=== PATIENT | female | born 1930 | race Caucasian/White ===

== ENCOUNTER 2019-04-02 08:47 | Inpatient (IN) | payer MEDICARE ==
[~2019-04-02] VITALS: Ht 154.9 cm; Wt 59.0 kg
--- NOTE | 2019-04-02 09:10 | NUR ---
ED Nurse Note: Patient was brought in to ER by daughter from [facility] due to rectal bleed and hemoglobin from 12 to 9 within 2 days at dialysis center. pt has been on dialysis for 3 month every , , Sun. last dialysis was yesterday and that's when her doctor found out her hemoglobin went down to 9. patient is hard of hearing, daughter at bedside, alert and oriented x4. pt can ambulate with FWW and 1 person assistance. pt has dialysis catheter on Rt upper chest and scheduled for Lt arm shunt insertion so no iv should be made on Lt arm. skin thin, pale, but intact.
[2019-04-02 09:36] VITALS: BP 138/54
[2019-04-02 09:51] LABS: BASOPHILS % (AUTO) 0.7 % (0.0-2.0); EOSINOPHILS % (AUTO) 1.6 % (0.0-3.0); HEMATOCRIT 32.6 % (37.0-47.0); HEMOGLOBIN 10.4 G/DL (12.0-16.0); LYMPHOCYTES % (AUTO) 21.5 % (20.0-45.0); MEAN CORPUSCULAR VOLUME 92 FL (80-99); MONOCYTES % (AUTO) 12.1 % (1.0-10.0); NEUTROPHILS % (AUTO) 64.2 % (45.0-75.0); PLATELET COUNT 151 K/UL (150-450); RED BLOOD COUNT 3.54 M/UL (4.20-5.40); RED CELL DISTRIBUTION WIDTH 16.5 % (11.6-14.8); WHITE BLOOD COUNT 5.5 K/UL (4.8-10.8)
[2019-04-02 09:56] LABS: INR 1.1 (0.9-1.1)
[2019-04-02 09:58] LABS: ANION GAP 10 mmol/L (5-15); BLOOD UREA NITROGEN 49 mg/dL (7-18); CALCIUM 7.5 MG/DL (8.5-10.1); CARBON DIOXIDE 27 MMOL/L (21-32); CHLORIDE 97 MMOL/L (98-107); CREATININE 3.6 MG/DL (0.55-1.30); POTASSIUM 5.2 MMOL/L (3.5-5.1); SODIUM 134 MMOL/L (136-145)
--- NOTE | 2019-04-02 09:59 | Emergency Room Report ---
History of Present Illness General Chief Complaint: Gastrointestinal Bleed Source: Patient, Family Member, Medical Record Present Illness HPI 88-year-old female presents ED for evaluation. Patient brought in with family stating that she's been having rectal bleeding for the last week. History of external hemorrhoids. States that she had labs drawn yesterday which showed drop in hemoglobin since last week. History of end-stage renal disease on dialysis Sunday. Denies any blood thinners. Denies any abdominal pain. Denies dizziness or weakness. No other aggravating relieving factors Allergies: Coded Allergies: AMLODIPINE (Verified Allergy, Unknown, 04/02/19) AMOXICILLIN (Verified Allergy, Unknown, 04/02/19) ERYTHROMYCIN BASE (Verified Allergy, Unknown, 04/02/19) GENTAMICIN (Verified Allergy, Unknown, 04/02/19) LATEX (Verified Allergy, Unknown, 04/02/19) PENICILLINS (Verified Allergy, Unknown, 04/02/19) PINEAPPLE (Verified Allergy, Unknown, 04/02/19) SULFA (SULFONAMIDE ANTIBIOTICS) (Verified Allergy, Unknown, 04/02/19) Patient History Past Medical History: HTN, renal disease, dialysis Past Surgical History: none Pertinent Family History: none Social History: Denies: smoking, alcohol use, drug use Last Menstrual Period: na Now: No Immunizations: UTD Reviewed Nursing Documentation: PMH: Agreed; PSxH: Agreed Nursing Documentation-PMH Past Medical History: No History, Except For Hx Cardiac Problems: Yes Hx Hypertension: Yes Hx Dialysis: Yes History Of Psychiatric Problem: Yes Review of Systems All Other Systems: negative except mentioned in HPI Physical Exam Vital Signs Date Time Temp Pulse Resp B/P (MAP) Pulse Ox O2 Delivery O2 Flow Rate FiO2 04/02/19 09:00 98.1 61 20 93 Room Air 04/02/19 09:36 138/54 Sp02 EP Interpretation: reviewed, normal General Appearance: no apparent distress, alert, GCS 15, non-toxic Head: normocephalic, atraumatic Eyes: bilateral eye normal inspection, bilateral eye PERRL ENT: hearing grossly normal, normal pharynx, no angioedema, normal voice Neck: full range of motion, supple/symm/no masses Respiratory: chest non-tender, lungs clear, normal breath sounds, speaking full sentences Cardiovascular #1: regular rate, rhythm, no edema Cardiovascular #2: 2+ carotid (R), 2+ carotid (L), 2+ radial (R), 2+ radial (L) , 2+ dorsalis pedis (R), 2+ dorsalis pedis (L) Gastrointestinal: normal bowel sounds, non tender, soft, non-distended, no guarding, no rebound Rectal: deferred Genitourinary: normal inspection, no CVA tenderness Musculoskeletal: back normal, gait/station normal, normal range of motion, non- tender Neurologic: alert, oriented x3, responsive, motor strength/tone normal, sensory intact, speech normal Psychiatric: judgement/insight normal, memory normal, mood/affect normal, no suicidal/homicidal ideation Reflexes: 3+ bicep (R), 3+ bicep (L), 3+ tricep (R), 3+ tricep (L), 3+ knee (R) , 3+ knee (L) Skin: normal color, no rash, warm/dry, well hydrated Lymphatic: no adenopathy Medical Decision Making Diagnostic Impression: Primary Impression: LGI bleed Additional Impression: ESRD needing dialysis ER Course Hospital Course 88-year-old F presents to ED with rectal bleeding Differential diagnoses include: UGIB, LGIB, hemorrhoids Clinical course Patient placed on 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 After initial history and physical I ordered labs, Labs - no leukocytosis, Hb/Hct 10.4/32.6. K 5.2, BUN/Cr elevated. According to patient and daughter there has been a drop in hemoglobin since last week. Currently not indication for transfusion. Patient is normotensive and not actively bleeding. Case discussed with Dr. Barrett and he agreed to accept the patient to his service for further care and support I feel this is a highly complex case requiring extensive working including EKG/ Rhythm strip, Xray/CT/US, Blood/urine lab work, repeat exams while in ED, and administration of strong opiates/narcotics for pain control, admission to hospital or close patient follow up. Diagnosis - LGIB, ESRD needing dialysis Patient admitted to telemetry in serious condition Labs Test 04/02/19 09:34 04/02/19 10:00 White Blood Count 5.5 K/UL (4.8-10.8) Red Blood Count 3.54 M/UL (4.20-5.40) Hemoglobin 10.4 G/DL (12.0-16.0) Hematocrit 32.6 % (37.0-47.0) Mean Corpuscular Volume 92 FL (80-99) Mean Corpuscular Hemoglobin 29.4 PG (27.0-31.0) Mean Corpuscular Hemoglobin Concent 31.9 G/DL (32.0-36.0) Red Cell Distribution Width 16.5 % (11.6-14.8) Platelet Count 151 K/UL (150-450) Mean Platelet Volume 8.4 FL (6.5-10.1) Neutrophils (%) (Auto) 64.2 % (45.0-75.0) Lymphocytes (%) (Auto) 21.5 % (20.0-45.0) Monocytes (%) (Auto) 12.1 % (1.0-10.0) Eosinophils (%) (Auto) 1.6 % (0.0-3.0) Basophils (%) (Auto) 0.7 % (0.0-2.0) Prothrombin Time 11.6 SEC (9.30-11.50) Prothromb Time International Ratio 1.1 (0.9-1.1) Activated Partial Thromboplast Time 31 SEC (23-33) Sodium Level 134 MMOL/L (136-145) Potassium Level 5.2 MMOL/L (3.5-5.1) Chloride Level 97 MMOL/L (98-107) Carbon Dioxide Level 27 MMOL/L (21-32) Anion Gap 10 mmol/L (5-15) Blood Urea Nitrogen 49 mg/dL (7-18) Creatinine 3.6 MG/DL (0.55-1.30) Estimat Glomerular Filtration Rate mL/min (>60) Glucose Level 165 MG/DL (74-106) Calcium Level 7.5 MG/DL (8.5-10.1) Total Bilirubin 0.3 MG/DL (0.2-1.0) Aspartate Amino Transf (AST/SGOT) 26 U/L (15-37) Alanine Aminotransferase (ALT/SGPT) 16 U/L (12-78) Alkaline Phosphatase 149 U/L (46-116) Total Protein 7.7 G/DL (6.4-8.2) Albumin 3.4 G/DL (3.4-5.0) Globulin 4.3 g/dL Albumin/Globulin Ratio 0.8 (1.0-2.7) Lipase 51 U/L (73-393) Urine Color Pale yellow Urine Appearance Clear Urine pH 7 (4.5-8.0) Urine Specific [place] 1.005 (1.005-1.035) Urine Protein 2+ (NEGATIVE) Urine Glucose (UA) Negative (NEGATIVE) Urine Ketones Negative (NEGATIVE) Urine Blood 2+ (NEGATIVE) Urine Nitrite Negative (NEGATIVE) Urine Bilirubin Negative (NEGATIVE) Urine Urobilinogen Normal MG/DL (0.0-1.0) Urine Leukocyte Esterase 2+ (NEGATIVE) Last Vital Signs Date Time Temp Pulse Resp B/P (MAP) Pulse Ox O2 Delivery O2 Flow Rate FiO2 04/02/19 09:36 61 20 Room Air 04/02/19 09:36 98.1 138/54 95 Status: improved Disposition: ADMITTED INPATIENT Condition: Serious Referrals: NON PHYSICIAN (PCP) Rai Lu MD April 02, 2019 09:59
[2019-04-02 10:01] LABS: ALANINE AMINOTRANSFERASE 16 U/L (12-78); ALBUMIN 3.4 G/DL (3.4-5.0); ALBUMIN/GLOBULIN RATIO 0.8 (1.0-2.7); ALKALINE PHOSPHATASE 149 U/L (46-116); ASPARTATE AMINO TRANSFERASE 26 U/L (15-37); BILIRUBIN,TOTAL 0.3 MG/DL (0.2-1.0)
[2019-04-02 10:22] LABS: APPEARANCE,URINE CLEAR; BILIRUBIN, URINE NEGATIVE (NEGATIVE); COLOR,URINE PALE YELLOW; GLUCOSE, URINE (UA) NEGATIVE (NEGATIVE); KETONES,URINE NEGATIVE (NEGATIVE); LEUKOCYTE ESTERASE ,URINE 2+ (NEGATIVE); NITRITE,URINE NEGATIVE (NEGATIVE); PH,URINE 7 (4.5-8.0); PROTEIN,URINE 2+ (NEGATIVE); UROBILINOGEN,URINE NORMAL MG/DL (0.0-1.0)
--- NOTE | 2019-04-02 10:44 | NUR ---
ED Nurse Note: Patient could not provide stool sample. she will let nurse know when she can.
[2019-04-02] MEDS ORDERED: LOSARTAN POTASS50 MG ORAL (11:09)
[2019-04-02] MEDS ORDERED: HYDROCHLOROTHIA25 MG ORAL (11:09)
[2019-04-02] MEDS ORDERED: HYDRALAZINE HCL50 MG ORAL (11:09)
[2019-04-02] MEDS ORDERED: FLOMAX0.4 MG ORAL (11:09)
[2019-04-02] MEDS ORDERED: MIRTAZAPINE15 M3 ORAL (11:09)
[2019-04-02] MEDS ORDERED: ZOLPIDEM TARTRAT5 MG ORAL (11:09)
[2019-04-02] MEDS ORDERED: GABAPENTIN300 MG ORAL (11:09)
[2019-04-02] MEDS ORDERED: ELIQUIS2.5 MG PO (11:09)
[2019-04-02] MEDS ORDERED: SENNOSIDES8.6 MG ORAL (11:09)
[2019-04-02] MEDS ORDERED: ATORVASTATIN CA20 MG ORAL (11:09)
[2019-04-02] MEDS ORDERED: AMIODARONE HCL200 MG ORAL (11:09)
[2019-04-02] MEDS ORDERED: AMIODARONE HCL400 M1 ORAL (11:09)
[2019-04-02] MEDS ORDERED: ADALAT20 MG ORAL (11:09)
[2019-04-02] MEDS ORDERED: NORCO 5-325 TA1 EACH ORAL (11:09)
[2019-04-02] MEDS ORDERED: LACTULOSE10 GM/153 PO (11:09)
[2019-04-02] MEDS ORDERED: FUROSEMIDE40 MG ORAL (11:09)
[2019-04-02] MEDS ORDERED: MIRALAX17 G2 ORAL (11:09)
[2019-04-02] MEDS ORDERED: LORATADINE5 MG/5 M3 PO (11:09)
[2019-04-02] MEDS ORDERED: DOCUSATE SODIU100 MG ORAL (11:09)
[2019-04-02] MEDS ORDERED: SYNTHROID150 MCG ORAL (11:09)
[2019-04-02] MEDS ORDERED: POTASSIUM CHLO10 ME2 PO (11:09)
[2019-04-02 11:36] VITALS: BP 144/51
--- NOTE | 2019-04-02 11:52 | NUR ---
ED Nurse Note: report given to MIKAEL Kaiser. room is not ready yet. pt will be transferred in 20 minutes per Telemetry unit's request.
[2019-04-02 12:00] VITALS: BP 119/51
--- NOTE | 2019-04-02 12:30 | NUR ---
ED Nurse Note: Pt was tranferred to Telemetry unit with 1 RN and 1 medical equipment technician in stable condition.
--- NOTE | 2019-04-02 12:35 | NUR ---
NURSE NOTES: Received report from MIKAEL Zavala. Patient transferred from ED to tele, phototypesetting equipment monitor on, Belonging list checked with RN. Family member, Daughter, at the bed side claimed she spent money for her lunch, becker left in wallet $10x1, $5X3, checked with family member and patient. Endorsed patient was schedule for insertion of AV shunt on left upper arm, AOx4, no active s/s cardiac, respiratory distress noticed, c/o scant amount of blood when patient went to bathroom. Bed in lowest position, side rails upx3, call light within reach. Will continue to monitor.
--- NOTE | 2019-04-02 12:40 | NUR ---
NURSE NOTES: VS at the time of arrival 119/51, HR 65, T 96.8, O2 sat 94% on room air, denies pain at this time. Skin assessment done, skin intact, no open wound, bilateral heels blanchable redness noticed, Cavilon applied and Optifoam applied as preventive measure.
--- NOTE | 2019-04-02 13:00 | NUR ---
NURSE NOTES: Paged Dr. Prater for admission order, awaiting for call back, Will continue to monitor.
--- NOTE | 2019-04-02 14:33 | NUR ---
NURSE NOTES: Received admission order from Dr. Prater. Per Dr. Prater continue all the home medication except blood thinner, Eliquis, no need of DVT prophylaxis at this time for active rectal bleeding, stated already called [facility] for HD tomorrow 04/03/19, consult with Dr. Mckinney. Order noted, entered, carried out. Will continue to monitor.
[2019-04-02] MEDS ORDERED: HYDROcodone/Acetamin 5/325 tab ORAL PRN (15:00)
[2019-04-02] MEDS ORDERED: Miralax 17gm pkt ORAL PRN (15:00)
[2019-04-02 16:00] VITALS: BP 108/43
[2019-04-02] MEDS ORDERED: D5 1/2NS w/KCl 20mEq 1,000 ML IV SCH (16:00)
[2019-04-02] MEDS ORDERED: Polyethylene Glycol 238gm bottle ORAL ONE (16:00)
[2019-04-02] MEDS ORDERED: Magnesium Citrate Liq Btl ORAL ONE (16:00)
[2019-04-02] MEDS: D5 1/2NS 1,000 ML IV SCH (16:24)
--- NOTE | 2019-04-02 19:26 | NUR ---
HAND-OFF: Report given to MIKAEL Malhotra.
--- NOTE | 2019-04-02 19:42 | NUR ---
NURSE NOTES: patient received. patient in no acute distress at this time. patient complains of no pain at this time. patient awake alert and oriented x4. patient ambulatory and has steady gait. IV intact and asymptomatic. Patient NPO after midnight. sign above bed. bed in lowest position and locked. call light within reach. will continue to monitor.
[2019-04-02 20:00] VITALS: BP 125/55
--- NOTE | 2019-04-02 20:00 | Consultation ---
DATE OF CONSULTATION: 04/02/2019 CONSULTING PHYSICIAN: Inocencio Mckinney M.D. REFERRING PHYSICIAN: Clark Alvarez M.D. CHIEF COMPLAINT: Rectal bleeding. HISTORY OF PRESENT ILLNESS: This is a very pleasant 88-year-old female with past medical history of hypertension and end-stage renal disease, on hemodialysis, who presented to the hospital complaining of rectal pain, constipation, and rectal bleeding. Apparently, this has been going on for a while and getting worse. According to the patient, she had blood check in an outside facility and she was told that her hemoglobin is dropping. She had a colonoscopy many years ago, more than 10 years ago. She had complained of some rectal pain. No nausea. No vomiting. No dysphagia. No odynophagia. PAST MEDICAL HISTORY: 1. Hypertension. 2. End-stage renal disease, on hemodialysis. 3. Borderline diabetes. PAST SURGICAL HISTORY: Appendectomy, tonsillectomy, AV shunt placement for dialysis. ALLERGIES: Amlodipine, amoxicillin, erythromycin, gentamicin, latex, penicillin, pineapple, sulfa. MEDICATIONS: Please see medication reconciliation list. SOCIAL HISTORY: The patient denies any tobacco, alcohol, or IV drug abuse. FAMILY HISTORY: The patient actually has family history of breast cancers. REVIEW OF SYSTEM: Ten-point review of systems was performed and pertinent positives in HPI. PHYSICAL EXAMINATION: VITAL SIGNS: Temperature is 98.1, pulse 61, respirations 20, and blood pressure is 132/64. HEENT: Normocephalic and atraumatic. Mild pale conjunctivae. NECK: Supple. No evidence of obvious lymphadenopathy. CARDIOVASCULAR: Regular rate and rhythm. Plus S1 and S2. No obvious murmur. LUNGS: Clear to auscultation bilaterally. ABDOMEN: Positive bowel sounds. Soft and nontender. No rebound. No guarding. No peritoneal sign. EXTREMITIES: No cyanosis, no clubbing, no edema. LABORATORY DATA: White count is 5, hemoglobin 10, hematocrit 32, platelet count is 151,000. BUN is 49, creatinine is 3.6, glucose is 165. ASSESSMENT: This is an 88-year-old female with rectal bleeding. Differential diagnosis would be hemorrhoidal bleed versus diverticular bleed versus other cause of bleeding including AVM and malignancy. PLAN: I discussed the colonoscopy with the patient. The patient has also had some complaint of mild dysphagia, so I plan to do an endoscopy and colonoscopy tomorrow. The patient would get prep tonight and procedure is scheduled for tomorrow. Meanwhile, we will monitor hemoglobin and hematocrit, transfuse to keep hemoglobin above 8. I want to thank, Dr. Alvarez, for this kind referral. Inocencio Mckinney M.D. DR: ROXANNE JOB#: [id number] CC: Clark Alvarez M.D.; Fax#: [phone]
[2019-04-02] MEDS: HydrALAZINE 50mg tab ORAL SCH (21:16)
[2019-04-02] MEDS: Zolpidem 5mg tab ORAL PRN (21:16)
[2019-04-03] VITALS (9 sets, daily range): BP systolic 101–132; BP diastolic 35–66
[2019-04-03] MEDS: D5 1/2NS 1,000 ML IV SCH ×2 (05:37→17:07)
[2019-04-03] MEDS: HydrALAZINE 50mg tab ORAL SCH ×3 (06:24→22:17)
[2019-04-03 07:06] LABS: BASOPHILS % (AUTO) 0.7 % (0.0-2.0); HEMATOCRIT 26.3 % (37.0-47.0); HEMOGLOBIN 8.1 G/DL (12.0-16.0); LYMPHOCYTES % (AUTO) 25.8 % (20.0-45.0); MEAN CORPUSCULAR VOLUME 97 FL (80-99); MONOCYTES % (AUTO) 14.3 % (1.0-10.0); NEUTROPHILS % (AUTO) 56.2 % (45.0-75.0); PLATELET COUNT 133 K/UL (150-450); RED BLOOD COUNT 2.71 M/UL (4.20-5.40); RED CELL DISTRIBUTION WIDTH 17.5 % (11.6-14.8); WHITE BLOOD COUNT 3.8 K/UL (4.8-10.8)
--- NOTE | 2019-04-03 07:13 | NUR ---
HAND-OFF: Report given to connie mccarthy.
[2019-04-03] MEDS ORDERED: fentaNYL 100 mcg/2 mL IV PRN (07:15)
[2019-04-03] MEDS ORDERED: DiphenhydrAMINE 50mg/ml Inj IVP PRN (07:15)
[2019-04-03] MEDS ORDERED: Atropine Inj 1mg/10ml Syr IV PRN (07:15)
[2019-04-03] MEDS ORDERED: Midazolam 2mg/2ml Inj IVP PRN (07:15)
--- NOTE | 2019-04-03 07:16 | NUR ---
NURSE NOTES: Received report from Marya/MIKAEL, Patient is asleep, No acute distress at this time. Bed in low position and locked. Call light within reach. Will continue plan of care.
--- NOTE | 2019-04-03 07:17 | Anethesia Preoperative Eval ---
Anesthesia Pre-op PMH/ROS General Date of Evaluation: April 03, 2019 Time of Evaluation: 07:15 Anesthesiologist: ramya ASA Score: ASA 4 Mallampati Score Class I : Soft palate, uvula, fauces, pillars visible Class II: Soft palate, uvula, fauces visible Class III: Soft palate, base of uvula visible Class IV: Only hard plate visible Mallampati Classification: Class II Surgeon: juan a Diagnosis: lgib Surgical Procedure: egd/colonoscopy Anesthesia History: none Social History: smoking - former Family History: no anesthesia problems Allergies: Coded Allergies: AMLODIPINE (Verified Allergy, Unknown, 04/02/19) AMOXICILLIN (Verified Allergy, Unknown, 04/02/19) ERYTHROMYCIN BASE (Verified Allergy, Unknown, 04/02/19) GENTAMICIN (Verified Allergy, Unknown, 04/02/19) LATEX (Verified Allergy, Unknown, 04/02/19) PENICILLINS (Verified Allergy, Unknown, 04/02/19) PINEAPPLE (Verified Allergy, Unknown, 04/02/19) SULFA (SULFONAMIDE ANTIBIOTICS) (Verified Allergy, Unknown, 04/02/19) Medications: see eMAR Patient NPO?: Yes Past Medical History Cardiovascular: Reports: HTN Gastrointestinal/Genitourinary: Reports: ESRD Neurologic/Psychiatric: Reports: dementia Endocrine: Reports: hypothyroidism HEENT: Reports: UNGA (L), UNGA (R) Anesthesia Pre-op Phys. Exam Physician Exam Last Vital Signs Date Time Temp Pulse Resp B/P (MAP) Pulse Ox O2 Delivery O2 Flow Rate FiO2 04/03/19 06:24 130/59 04/03/19 04:00 98.0 69 18 97 04/02/19 21:00 Room Air Constitutional: NAD Neurologic: CN 2-12 intact Cardiovascular: RRR Respiratory: CTA Gastrointestinal: S/NT/ND Airway Exam Mallampati Score: Class II MO: limited Neck: flexible TMD: 2fb ROM: limited Anesthesia Pre-op A/P Labs Hematology Test 04/02/19 09:34 04/03/19 06:15 White Blood Count 5.5 K/UL (4.8-10.8) Pending Red Blood Count 3.54 M/UL (4.20-5.40) L Pending Hemoglobin 10.4 G/DL (12.0-16.0) L Pending Hematocrit 32.6 % (37.0-47.0) L Pending Mean Corpuscular Volume 92 FL (80-99) Pending Mean Corpuscular Hemoglobin 29.4 PG (27.0-31.0) Pending Mean Corpuscular Hemoglobin Concent 31.9 G/DL (32.0-36.0) L Pending Red Cell Distribution Width 16.5 % (11.6-14.8) H Pending Platelet Count 151 K/UL (150-450) Pending Mean Platelet Volume 8.4 FL (6.5-10.1) Pending Neutrophils (%) (Auto) 64.2 % (45.0-75.0) Pending Lymphocytes (%) (Auto) 21.5 % (20.0-45.0) Pending Monocytes (%) (Auto) 12.1 % (1.0-10.0) H Pending Eosinophils (%) (Auto) 1.6 % (0.0-3.0) Pending Basophils (%) (Auto) 0.7 % (0.0-2.0) Pending Coagulation Test 04/02/19 09:34 Prothrombin Time 11.6 SEC (9.30-11.50) H Prothromb Time International Ratio 1.1 (0.9-1.1) Activated Partial Thromboplast Time 31 SEC (23-33) Chemistry Test 04/02/19 09:34 04/03/19 06:15 Sodium Level 134 MMOL/L (136-145) L Pending Potassium Level 5.2 MMOL/L (3.5-5.1) H Pending Chloride Level 97 MMOL/L (98-107) L Pending Carbon Dioxide Level 27 MMOL/L (21-32) Pending Anion Gap 10 mmol/L (5-15) Blood Urea Nitrogen 49 mg/dL (7-18) H Pending Creatinine 3.6 MG/DL (0.55-1.30) H Pending Estimat Glomerular Filtration Rate mL/min (>60) Pending Glucose Level 165 MG/DL (74-106) H Pending Calcium Level 7.5 MG/DL (8.5-10.1) L Pending Total Bilirubin 0.3 MG/DL (0.2-1.0) Aspartate Amino Transf (AST/SGOT) 26 U/L (15-37) Alanine Aminotransferase (ALT/SGPT) 16 U/L (12-78) Alkaline Phosphatase 149 U/L (46-116) H Total Protein 7.7 G/DL (6.4-8.2) Albumin 3.4 G/DL (3.4-5.0) Globulin 4.3 g/dL Albumin/Globulin Ratio 0.8 (1.0-2.7) L Lipase 51 U/L (73-393) L Risk Assessment & Plan Assessment: asa4 Plan: mac. patient's family member, Aminah Ramey, was called. message was left on voicemail. patient appeared to be alert and oriented to person, place, location, and purpose. Patient was warned of risks, included but not limited to heart attack, stroke or . questions answered. Patient indicates that she understands and accepts Status Change Before Surgery: No Pre-Antibiotics Drug: Graciela Flood MD April 03, 2019 07:17
[2019-04-03] MEDS: Losartan 50mg tab ORAL SCH (09:00)
[2019-04-03] MEDS ORDERED: Furosemide 40mg tab ORAL SCH (09:00)
[2019-04-03 09:02] LABS: ANION GAP 7 mmol/L (5-15); BLOOD UREA NITROGEN 54 mg/dL (7-18); CALCIUM 7.4 MG/DL (8.5-10.1); CARBON DIOXIDE 29 MMOL/L (21-32); CHLORIDE 103 MMOL/L (98-107); CREATININE 3.8 MG/DL (0.55-1.30); POTASSIUM 4.5 MMOL/L (3.5-5.1); SODIUM 139 MMOL/L (136-145)
[2019-04-03] MEDS: Amiodarone 200mg tab ORAL SCH (09:44)
[2019-04-03] MEDS: Docusate 100mg cap ORAL SCH (09:45)
[2019-04-03] MEDS: Tamsulosin 0.4mg cap ORAL SCH (09:45)
[2019-04-03] MEDS: Sennosides 8.6mg tab ORAL SCH (09:45)
[2019-04-03] MEDS: Lactulose 10gm/15ml UDC ORAL SCH (10:01)
[2019-04-03] MEDS ORDERED: ePHEDrine 50mg/ml Inj ONE (11:00)
[2019-04-03] MEDS ORDERED: Lidocaine 1% MPF 10mg/ml 5ml ONE (11:00)
[2019-04-03] MEDS ORDERED: Propofol 200mg/20ml IV ONE (11:00)
--- NOTE | 2019-04-03 11:39 | Pre-Procedure Note/Attestation ---
Pre-Procedure Note/Attestation Complete Prior to Procedure Planned Procedure: not applicable Procedure Narrative: esophagogastroduodenoscopy and colonoscopy Indications for Procedure Pre-Operative Diagnosis: gib Attestation I attest that I discussed the nature of the procedure; its benefits; risks and complications; and alternatives (and the risks and benefits of such alternatives ), prior to the procedure, with the patient (or the patient's legal strategic partnership representative). I attest that, if there was a reasonable possibility of needing a blood transfusion, the patient (or the patient's legal strategic partnership representative) was given the [facility] standardized written summary, pursuant to the Mian Melinda Blood Safety Act ([place] Health and Safety Code # 1645, as amended). I attest that I re-evaluated the patient just prior to the surgery and that there has been no change in the patient's H&P, except as documented below: Inocencio Mckinney MD April 03, 2019 11:39
[2019-04-03] MEDS ORDERED: NS 500ML IVPB ONE (11:40)
--- NOTE | 2019-04-03 11:41 | General Progress Note ---
Assessment/Plan Problem List: (1) LGI bleed ICD Codes: K92.2 - Gastrointestinal hemorrhage, unspecified; Z99.2 - Dependence on renal dialysis SNOMED: 46862806 (2) ESRD needing dialysis ICD Codes: N18.6 - End stage renal disease; Z99.2 - Dependence on renal dialysis SNOMED: 06744001 Assessment/Plan: plan EGD and colonoscopy for today Subjective ROS Limited/Unobtainable: Yes Allergies: Coded Allergies: AMLODIPINE (Verified Allergy, Unknown, 04/02/19) AMOXICILLIN (Verified Allergy, Unknown, 04/02/19) ERYTHROMYCIN BASE (Verified Allergy, Unknown, 04/02/19) GENTAMICIN (Verified Allergy, Unknown, 04/02/19) LATEX (Verified Allergy, Unknown, 04/02/19) PENICILLINS (Verified Allergy, Unknown, 04/02/19) PINEAPPLE (Verified Allergy, Unknown, 04/02/19) SULFA (SULFONAMIDE ANTIBIOTICS) (Verified Allergy, Unknown, 04/02/19) Objective Last 24 Hour Vital Signs Date Time Temp Pulse Resp B/P (MAP) Pulse Ox O2 Delivery O2 Flow Rate FiO2 04/03/19 09:00 58 115/42 04/03/19 09:00 115/42 04/03/19 06:24 130/59 04/03/19 04:00 98.0 69 18 130/59 (82) 97 04/03/19 04:00 55 04/03/19 00:00 97.5 61 18 132/66 (88) 98 04/03/19 00:00 55 04/02/19 21:16 108/43 04/02/19 21:00 Room Air 04/02/19 20:00 61 04/02/19 20:00 97.5 58 18 125/55 (78) 98 04/02/19 16:00 56 04/02/19 16:00 97.5 55 20 108/43 (64) 95 04/02/19 13:02 Room Air 04/02/19 12:30 98.1 57 18 144/51 98 Room Air 04/02/19 12:00 96.8 65 18 119/51 (73) 94 Intake and Output 04/02/19 04/03/19 18:59 06:59 Intake Total 240 ml 240 ml Balance 240 ml 240 ml Intake Oral 240 ml 240 ml # Voids 3 7 # Bowel Movements 14 Laboratory Tests 04/03/19 06:15: White Blood Count 3.8L, Red Blood Count 2.71L, Hemoglobin 8.1L, Hematocrit 26.3L , Mean Corpuscular Volume 97, Mean Corpuscular Hemoglobin 29.7, Mean Corpuscular Hemoglobin Concent 30.6L, Red Cell Distribution Width 17.5H, Platelet Count 133L, Mean Platelet Volume 7.8, Neutrophils (%) (Auto) 56.2, Lymphocytes (%) (Auto) 25.8, Monocytes (%) (Auto) 14.3H, Eosinophils (%) (Auto) 3.0, Basophils (%) (Auto) 0.7 04/03/19 08:40: Sodium Level 139, Potassium Level 4.5, Chloride Level 103, Carbon Dioxide Level 29, Anion Gap 7, Blood Urea Nitrogen 54H, Creatinine 3.8H, Estimat Glomerular Filtration Rate , Glucose Level 259H, Calcium Level 7.4L Height (Feet): 5 Height (Inches): 1.00 Weight (Pounds): 124 General Appearance: alert EENT: normal ENT inspection Neck: supple Cardiovascular: normal rate Respiratory/Chest: decreased breath sounds Abdomen: normal bowel sounds, non tender, soft Extremities: non-tender Inocencio Mckinney MD April 03, 2019 11:41
--- NOTE | 2019-04-03 11:55 | NUR ---
CASE MANAGEMENT:REVIEW 88 YR OLD FEMALE PRESENTED TO ER FROM [facility] CC: RECTAL BLEEDING PMH: DIALYSIS X3 MONTHS T--SUN SI: LGIB. ESRD NEEDING DIALYSIS 98.1 61 20 143/41 93% ON RA H/H-10.4/32.6 K+5.2 BUN+49 CR+3.6 IS: IVF@75/HR MAG CITRATE PO X1 MIRALAX PO X1 STOOL OB : TELEMETRY IS: COZAAR PO QD LACTULOSE PO QD AMIODARONE PO QD FLOMAX PO QD LASIX PO QD K-DUR PO QD HCTZ PO QD PROCARDIA PO QD 04/03/19 SI: H/H-8.1/26.3 IS: EGD/COLONOSCOPY : TELEMETRY PLAN: EGD/COLONOSCOPY INTERQUAL CRITERIA MET
--- NOTE | 2019-04-03 12:07 | Endoscopy Procedure Note ---
Endoscopy Procedure Note General Indication for Procedure: gib Procedures Performed: EGD, colonoscopy Operative Findings/Diagnosis: hemorrhoids,gastritis Specimen: yes Pt Tolerated Procedure Well: Yes Estimated Blood Loss: none Anesthesia Anesthesiologist: ramya Anesthesia: MAC Inserted Devices Implant(s) used?: No Quality Quality of Bowel Preparation: Fair Did scope reach the cecum?: Yes Was there any complications?: No GI Core Measures 50 yrs or older w/o bx or poly: Not Applicable 10yrs. F/U not recommended: Not Applicable Inocencio Mckinney MD April 03, 2019 12:07
--- NOTE | 2019-04-03 12:31 | Immediate Post-Op Evaluation ---
Immediate Post-Op Evalulation Immediate Post-Op Evalulation Procedure: egd/colonoscopy/bx Date of Evaluation: April 03, 2019 Time of Evaluation: 12:30 IV Fluids: 300ml 0.9ns Blood Products: none Estimated Blood Loss: negligible Blood Pressure Systolic: 101 Blood Pressure Diastolic: 35 Pulse Rate: 69 Respiratory Rate: 18 O2 Sat by Pulse Oximetry: 99 Temperature (Fahrenheit): 97.5 Pain Score (1-10): 0 Nausea: No Vomiting: No Complications none Patient Status: awake, reacts, patent Hydration Status: adequate Drug: Graciela Flood MD April 03, 2019 12:31
--- NOTE | 2019-04-03 12:32 | 48 Hour Post Anesthesia Eval ---
Post Anesthesia Evaluation Procedure: egd/colonoscopy/bx Date of Evaluation: April 03, 2019 Time of Evaluation: 12:32 Blood Pressure Systolic: 112 0: 37 Pulse Rate: 69 Respiratory Rate: 18 Temperature (Fahrenheit): 97.5 O2 Sat by Pulse Oximetry: 96 Airway: patent Nausea: No Vomiting: No Pain Intensity: 0 Hydration Status: adequate Cardiopulmonary Status: stable Mental Status/LOC: patient returned to baseline Post-Anesthesia Complications: none Follow-up care needed: N/A Graciela Gupta MD April 03, 2019 12:32
--- NOTE | 2019-04-03 15:49 | Diagnostic Imaging Report ---
Indication: Dyspnea Comparison: None A single view chest radiograph was obtained. Findings: Heart is enlarged. There is a right permacath in good position. There is some prominence of the central vessels. Bones are osteopenic. IMPRESSION: Query mild pulmonary vascular congestion. Correlate clinically
[2019-04-03] MEDS: Hydrocortisone 25mg supp RECTAL SCH (17:39)
--- NOTE | 2019-04-03 17:45 | Procedure Note ---
DATE OF PROCEDURE: 04/03/2019 SURGEON: Inocencio Mckinney M.D. PROCEDURE: Upper endoscopy with biopsy and colonoscopy with biopsy. ANESTHESIOLOGIST: Graciela Lazar M.D. INSTRUMENT: Olympus adult flexible upper endoscope and colonoscope. INDICATION: Gastrointestinal bleeding. REASON FOR PROCEDURE: The procedure, risks, benefits, and possible consequences, including hemorrhage, aspiration, perforation and infection, and alternative treatments, were explained to the patient/legal guardian by Dr. Inocencio Mckinney and the patient/legal guardian understood and accepted these risks. PROCEDURE IN DETAIL: After informed consent was obtained and the patient was adequately sedated, an Olympus upper endoscope was advanced from the mouth into the second portion of duodenum and retroflexion was performed in the stomach. The patient has diffuse gastritis. Random biopsy from antrum was obtained to rule out for H. pylori infection. At this time, the upper endoscope was retrieved and the patient was turned over for colonoscopy. First, rectal exam was performed, which showed positive for internal hemorrhoids. Then, the scope was advanced from the rectum into the cecum documented by appendiceal orifice, ileocecal valve, and right upper quadrant palpation. Quality of prep was fair. The patient had one polyp in the rectum removed with the cold biopsy forceps technique. The rest of the exam showed within normal limits. Retroflexion of rectum showed evidence of internal hemorrhoids. SUMMARY OF FINDINGS: 1. Gastritis, status post biopsy. 2. Limited colonoscopy examination given the prep. 3. One rectal polyp removed. See above for details. 4. Internal hemorrhoids. RECOMMENDATIONS: 1. Resume diet. 2. Follow laboratories. 3. The patient is mostly probably bleeding from the internal hemorrhoids. We will treat for hemorrhoids. I want to thank, Dr. Alvarez, for this kind referral. Inocencio Mckinney M.D. DR: ISAAC JOB#: [id number] CC: Clark Alvarez M.D.; Fax#: [phone]
[2019-04-03] MEDS ORDERED: Heparin 5000 units/ml inj INJ PRN (18:00)
[2019-04-03] MEDS ORDERED: Heparin Sod 1000 units/ml 10ml IV PRN (18:00)
--- NOTE | 2019-04-03 19:00 | History and Physical Report ---
DATE OF ADMISSION: 04/02/2019 CHIEF COMPLAINT: Rectal bleeding. HISTORY OF PRESENT ILLNESS: This is an 88-year-old female on dialysis. The patient was seen by my daughter, Cici Vazquezdex in the office. The patient has history of external hemorrhoids. The patient presented with rectal bleeding during her dialysis Sunday, , Sunday. The patient has been complaining of dizziness. She was sent for ruling out most serious etiology for her rectal bleeding. PAST MEDICAL HISTORY: 1. End-stage renal failure on dialysis. 2. Hypertensive cardiovascular disease. 3. Cardiomyopathy. 4. Hypothyroidism. MEDICATIONS: Tylenol, amiodarone, apixaban or Eliquis, atorvastatin, sodium docusate, Neurontin, hydralazine, hydrochlorothiazide, lactulose, Synthroid, loratadine, losartan, Remeron, Nifedipine, MiraLAX, potassium chloride, tamsulosin. ALLERGIES: To multiple medications amlodipine, amoxicillin, erythromycin, gentamicin, latex, penicillin, pineapple, sulfa. FAMILY HISTORY: Unremarkable. SOCIAL HISTORY: He lives at home. HABITS: She is nonsmoker, nondrinker. There is no history of illicit drug abuse. REVIEW OF SYSTEMS: HEENT: Hearing, decreased. Eyesight decreased. ENDOCRINE: Significant for hypothyroidism. RESPIRATORY: She has shortness of breath. CARDIAC: She has history of cardiomyopathy. GASTROINTESTINAL: Please refer to history of present illness. NEUROLOGIC: No history of stroke. PHYSICAL EXAMINATION: GENERAL: This is an elderly female who is in no acute distress. VITAL SIGNS: Blood pressure 101/56, pulse 69 regular, respirations 20, and temperature 98. HEENT: Head is normocephalic and atraumatic. Pupils are equal, round, and reactive to light and accommodation consensually. NECK: Supple. Trachea midline. There was no lymphadenopathy or thyromegaly. LUNGS: Clear to auscultation and percussion. HEART: Regular rate and rhythm without rubs, murmurs, or gallops. ABDOMEN: Soft and nontender. Bowel sounds were active. EXTREMITIES: No clubbing, cyanosis, or edema. NEUROLOGICAL: She is alert and oriented x4. Cranial nerves II through XII intact. LABORATORY AND ANCILLARY DATA: Hematocrit 26.3, white count 3.8, and platelet count 133. Sodium 139, potassium 4.5, BUN 54, creatinine 3.8. At this point, imaging reports pending. ASSESSMENT: 1. Rectal bleeding. I have spoken already with Dr. Mckinney who did lower endoscopy which was negative, only showing hemorrhoids. 2. Hemodialysis, pending. Clark Alvarez M.D. DR: Vincenzo JOB#: [id number] CC:
--- NOTE | 2019-04-03 19:30 | NUR ---
NURSE NOTES: BEDSIDE REPORT RECEIVED FROM MIKAEL MACEDO. PT IS X4, CURRENTLY RECEIVED HD W/ IRC, ABLE TO MAKE NEEDS KNOWN. RECTIFICATION PRINTER SHOWING SR/SB W/ BBB. SATING WELL ON RA; NO S/S OF DISTRESS NOTED. SKIN IS CLEAN, DRY, DRESSINGS INTACT. RUC AV SHUNT NOTED. RH 20 RUNNING D51/2NS @ 75; ASYMPTOMATIC. LABS OK PER RN, NO ORDERS FROM MD. EGD/COLONOSCOPY DONE TODAY; SEE NOTES. OB STOOL TO BE COLLECTED BUT RN STATED BOWEL IS WATERY D/T MEDICATIONS FROM COLONOSCOPY; WILL FOLLOW UP. BED IS LOCKED IN LOWEST POSITION, SR X3, CALL CARLIN W/ IN REACH, BED ALARM ON. WILL CONTINUE TO MONITOR AND FOLLOW W/ PLAN OF CARE.
--- NOTE | 2019-04-03 20:00 | NUR ---
HAND-OFF: Report given to Kat/RN, Patient in stable condition. Endorsed plan of care.
--- NOTE | 2019-04-03 21:00 | NUR ---
NURSE NOTES: PT IS CURRENTLY RECEIVING HD, WILL HOLD ALL MEDS UNTIL FINISHED. WILL CONTINUE TO MONITOR.
--- NOTE | 2019-04-03 22:03 | NUR ---
NURSE NOTES: PT HAS COMPLETED DIALYSIS, 2L OUT. WILL ADMIN 2100 MEDS.
[2019-04-03] MEDS: Iron Sucrose 100 MG in NS 55 ML IV SCH (22:15)
[2019-04-03] MEDS: Zolpidem 5mg tab ORAL PRN (22:21)
[2019-04-04] VITALS: BP 160/63
[2019-04-04 04:00] VITALS: BP 124/52
[2019-04-04] MEDS: HydrALAZINE 50mg tab ORAL SCH ×2 (05:48→14:00)
[2019-04-04 06:37] LABS: BASOPHILS % (AUTO) 0.6 % (0.0-2.0); EOSINOPHILS % (AUTO) 2.1 % (0.0-3.0); HEMATOCRIT 31.3 % (37.0-47.0); HEMOGLOBIN 10.1 G/DL (12.0-16.0); LYMPHOCYTES % (AUTO) 27.6 % (20.0-45.0); MEAN CORPUSCULAR VOLUME 92 FL (80-99); NEUTROPHILS % (AUTO) 57.8 % (45.0-75.0); PLATELET COUNT 155 K/UL (150-450); RED CELL DISTRIBUTION WIDTH 16.5 % (11.6-14.8); WHITE BLOOD COUNT 5.1 K/UL (4.8-10.8)
[2019-04-04 06:54] LABS: ALANINE AMINOTRANSFERASE 15 U/L (12-78); ALBUMIN/GLOBULIN RATIO 0.8 (1.0-2.7); ALKALINE PHOSPHATASE 130 U/L (46-116); ANION GAP 7 mmol/L (5-15); ASPARTATE AMINO TRANSFERASE 18 U/L (15-37); BILIRUBIN,TOTAL 0.2 MG/DL (0.2-1.0); BLOOD UREA NITROGEN 26 mg/dL (7-18); CALCIUM 7.9 MG/DL (8.5-10.1); CARBON DIOXIDE 29 MMOL/L (21-32); CHLORIDE 101 MMOL/L (98-107); CREATININE 2.6 MG/DL (0.55-1.30); POTASSIUM 4.7 MMOL/L (3.5-5.1); SODIUM 137 MMOL/L (136-145)
--- NOTE | 2019-04-04 07:26 | NUR ---
HAND-OFF: Report given to MIKAEL Nicolas.
--- NOTE | 2019-04-04 07:34 | NUR ---
NURSE NOTES: Pt received from MIKAEL Stephens alert and oriented x4 with no acute s/s of distress noted. Currently sitting up in bed, eating breakfast. Bed in lowest position, call light and belongings within reach.
[2019-04-04 08:00] VITALS: BP 120/44
[2019-04-04] MEDS: Losartan 50mg tab ORAL SCH (09:00)
[2019-04-04] MEDS: Lactulose 10gm/15ml UDC ORAL SCH (09:06)
[2019-04-04] MEDS: Tamsulosin 0.4mg cap ORAL SCH (09:07)
[2019-04-04] MEDS: Docusate 100mg cap ORAL SCH (09:07)
[2019-04-04] MEDS: Hydrocortisone 25mg supp RECTAL SCH ×2 (09:07→17:30)
[2019-04-04] MEDS: Sennosides 8.6mg tab ORAL SCH (09:07)
[2019-04-04] MEDS: Amiodarone 200mg tab ORAL SCH (09:08)
--- NOTE | 2019-04-04 11:05 | GI Progress Note ---
Assessment/Plan Problems: (1) Anemia ICD Codes: D64.9 - Anemia, unspecified SNOMED: 881716839 (2) LGI bleed ICD Codes: K92.2 - Gastrointestinal hemorrhage, unspecified; Z99.2 - Dependence on renal dialysis SNOMED: 59619653 Status: stable Status Narrative Discussed with Dr. Mckinney. Assessment/Plan SUMMARY OF FINDINGS: 1. Gastritis, status post biopsy. 2. Limited colonoscopy examination given the prep. 3. One rectal polyp removed. See above for details. 4. Internal hemorrhoids. RECOMMENDATIONS: 1. Resume diet. 2. Follow laboratories. 3. The patient is mostly probably bleeding from the internal hemorrhoids. We will treat for hemorrhoids, anusol HC prn prn transfusion ppi dc planning The patient was seen and examined at bedside and all new and available data was reviewed in the patients chart. I agree with the above findings, impression and plan. (Patient seen earlier today. Signature stamp does not reflect patient encounter time.). - Inocencio Mckinney MD Subjective Subjective limited Objective Last 24 Hour Vital Signs Date Time Temp Pulse Resp B/P (MAP) Pulse Ox O2 Delivery O2 Flow Rate FiO2 04/04/19 09:00 64 120/44 04/04/19 09:00 120/44 04/04/19 05:48 124/52 04/04/19 04:00 57 04/04/19 04:00 97.9 60 20 124/52 (76) 96 04/04/19 00:00 97.8 72 16 160/63 (95) 96 04/04/19 00:00 58 04/03/19 22:17 162/63 04/03/19 21:00 Room Air 04/03/19 20:00 64 04/03/19 16:00 66 04/03/19 16:00 97.3 64 18 123/52 (75) 95 04/03/19 14:00 119/45 04/03/19 12:35 97.2 76 16 112/47 95 Room Air 04/03/19 12:32 69 18 96 04/03/19 12:31 69 18 99 04/03/19 12:29 69 15 101/56 95 Room Air 04/03/19 12:25 71 16 113/48 95 Nasal Cannula 3 04/03/19 12:18 97.5 70 18 101/35 98 Nasal Cannula 3 04/03/19 12:00 97.7 64 20 119/45 (69) 97 Intake and Output 04/03/19 04/04/19 18:59 06:59 Intake Total 420 ml Output Total 0 ml Balance 420 ml Intake Oral 120 ml IV Total 300 ml Output Estimated Blood Loss 0 ml # Voids 1 3 # Bowel Movements 8 Laboratory Tests Test 04/04/19 06:05 White Blood Count 5.1 K/UL (4.8-10.8) Red Blood Count 3.40 M/UL (4.20-5.40) L Hemoglobin 10.1 G/DL (12.0-16.0) L Hematocrit 31.3 % (37.0-47.0) L Mean Corpuscular Volume 92 FL (80-99) Mean Corpuscular Hemoglobin 29.6 PG (27.0-31.0) Mean Corpuscular Hemoglobin Concent 32.2 G/DL (32.0-36.0) Red Cell Distribution Width 16.5 % (11.6-14.8) H Platelet Count 155 K/UL (150-450) Mean Platelet Volume 8.3 FL (6.5-10.1) Neutrophils (%) (Auto) 57.8 % (45.0-75.0) Lymphocytes (%) (Auto) 27.6 % (20.0-45.0) Monocytes (%) (Auto) 12.0 % (1.0-10.0) H Eosinophils (%) (Auto) 2.1 % (0.0-3.0) Basophils (%) (Auto) 0.6 % (0.0-2.0) Sodium Level 137 MMOL/L (136-145) Potassium Level 4.7 MMOL/L (3.5-5.1) Chloride Level 101 MMOL/L (98-107) Carbon Dioxide Level 29 MMOL/L (21-32) Anion Gap 7 mmol/L (5-15) Blood Urea Nitrogen 26 mg/dL (7-18) H Creatinine 2.6 MG/DL (0.55-1.30) H Estimat Glomerular Filtration Rate mL/min (>60) Glucose Level 89 MG/DL (74-106) # Calcium Level 7.9 MG/DL (8.5-10.1) L Total Bilirubin 0.2 MG/DL (0.2-1.0) Aspartate Amino Transf (AST/SGOT) 18 U/L (15-37) Alanine Aminotransferase (ALT/SGPT) 15 U/L (12-78) Alkaline Phosphatase 130 U/L (46-116) H Total Protein 6.9 G/DL (6.4-8.2) Albumin 3.0 G/DL (3.4-5.0) L Globulin 3.9 g/dL Albumin/Globulin Ratio 0.8 (1.0-2.7) L Height (Feet): 5 Height (Inches): 1.00 Weight (Pounds): 131 General Appearance: no apparent distress Cardiovascular: normal rate Respiratory/Chest: normal breath sounds, no respiratory distress Abdominal Exam: normal bowel sounds, non tender, soft, GT site - c/d/i Extremities: non-tender Ishaan Velasquez NP April 04, 2019 11:05
[2019-04-04 12:00] VITALS: BP 138/52
--- NOTE | 2019-04-04 13:11 | NUR ---
CASE MANAGEMENT:REVIEW 04/04/19 SI: LGIB/RECTAL BLEEDING. ESRD GASTRITIS. S/P RECTAL POLYP REMOVED 98.0 60 17 138/52 97% ON RA H/H-10.1/31.3 BUN+26 CR+2.6 CA-7.9 IS: EPOETIN SQ MWF IV VENOFER QHS ANNUSOL BID COZAAR PO QD LACTULOSE PO QD AMIODARONE PO QD FLOMAX PO QD PROCARDIA PO QD HYDRALAZINE PO Q8HRS : TELEMETRY STATUS DCP: [facility]
[2019-04-04 16:00] VITALS: BP 134/51
--- NOTE | 2019-04-04 16:12 | NUR ---
NURSE NOTES: Received order for HD tomorrow. RN left message with IRC, confirmed HD RN for tomorrow.
--- NOTE | 2019-04-04 16:12 | Nephrology Progress Note ---
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 May consider DC Apixaban Trimming Polypharmacy. DW pt's family. She was on hazardous meds like KCL !! Subjective Subjective c/o Insomnia Objective Objective Last 24 Hour Vital Signs Date Time Temp Pulse Resp B/P (MAP) Pulse Ox O2 Delivery O2 Flow Rate FiO2 04/04/19 14:00 138/52 04/04/19 12:00 75 04/04/19 12:00 98.0 60 17 138/52 (80) 97 04/04/19 09:00 Room Air 04/04/19 09:00 64 120/44 04/04/19 09:00 120/44 04/04/19 08:00 64 04/04/19 08:00 97.7 64 22 120/44 (69) 97 04/04/19 05:48 124/52 04/04/19 04:00 57 04/04/19 04:00 97.9 60 20 124/52 (76) 96 04/04/19 00:00 97.8 72 16 160/63 (95) 96 04/04/19 00:00 58 04/03/19 22:17 162/63 04/03/19 21:00 Room Air 04/03/19 20:00 64 Intake and Output 04/03/19 04/04/19 18:59 06:59 Intake Total 420 ml Output Total 0 ml Balance 420 ml Intake Oral 120 ml IV Total 300 ml Output Estimated Blood Loss 0 ml # Voids 1 3 # Bowel Movements 8 Laboratory Tests 04/04/19 06:05: White Blood Count 5.1, Red Blood Count 3.40L, Hemoglobin 10.1L, Hematocrit 31.3L , Mean Corpuscular Volume 92, Mean Corpuscular Hemoglobin 29.6, Mean Corpuscular Hemoglobin Concent 32.2, Red Cell Distribution Width 16.5H, Platelet Count 155, Mean Platelet Volume 8.3, Neutrophils (%) (Auto) 57.8, Lymphocytes (%) (Auto) 27.6, Monocytes (%) (Auto) 12.0H, Eosinophils (%) (Auto) 2.1, Basophils (%) (Auto) 0.6, Sodium Level 137, Potassium Level 4.7, Chloride Level 101, Carbon Dioxide Level 29, Anion Gap 7, Blood Urea Nitrogen 26H, Creatinine 2.6H, Estimat Glomerular Filtration Rate , Glucose Level 89#, Calcium Level 7.9L, Total Bilirubin 0.2, Aspartate Amino Transf (AST/SGOT) 18, Alanine Aminotransferase (ALT/SGPT) 15, Alkaline Phosphatase 130H, Total Protein 6.9, Albumin 3.0L, Globulin 3.9, Albumin/Globulin Ratio 0.8L Height (Feet): 5 Height (Inches): 1.00 Weight (Pounds): 130 Objective CV RR 65 SR Lungs CTA Abd SNT. BS + E No CCE Clark Alvarez MD April 04, 2019 16:12
--- NOTE | 2019-04-04 17:54 | Cardiology Progress Note ---
Subjective Subjective [id number] Objective Last 24 Hour Vital Signs Date Time Temp Pulse Resp B/P (MAP) Pulse Ox O2 Delivery O2 Flow Rate FiO2 04/04/19 16:00 98.6 62 20 134/51 (78) 94 04/04/19 16:00 58 04/04/19 14:00 138/52 04/04/19 12:00 75 04/04/19 12:00 98.0 60 17 138/52 (80) 97 04/04/19 09:00 Room Air 04/04/19 09:00 64 120/44 04/04/19 09:00 120/44 04/04/19 08:00 64 04/04/19 08:00 97.7 64 22 120/44 (69) 97 04/04/19 05:48 124/52 04/04/19 04:00 57 04/04/19 04:00 97.9 60 20 124/52 (76) 96 04/04/19 00:00 97.8 72 16 160/63 (95) 96 04/04/19 00:00 58 04/03/19 22:17 162/63 04/03/19 21:00 Room Air 04/03/19 20:00 64 Intake and Output 04/03/19 04/04/19 18:59 06:59 Intake Total 420 ml Output Total 0 ml Balance 420 ml Intake Oral 120 ml IV Total 300 ml Output Estimated Blood Loss 0 ml # Voids 1 3 # Bowel Movements 8 Laboratory Tests Test 04/04/19 06:05 White Blood Count 5.1 K/UL (4.8-10.8) Red Blood Count 3.40 M/UL (4.20-5.40) L Hemoglobin 10.1 G/DL (12.0-16.0) L Hematocrit 31.3 % (37.0-47.0) L Mean Corpuscular Volume 92 FL (80-99) Mean Corpuscular Hemoglobin 29.6 PG (27.0-31.0) Mean Corpuscular Hemoglobin Concent 32.2 G/DL (32.0-36.0) Red Cell Distribution Width 16.5 % (11.6-14.8) H Platelet Count 155 K/UL (150-450) Mean Platelet Volume 8.3 FL (6.5-10.1) Neutrophils (%) (Auto) 57.8 % (45.0-75.0) Lymphocytes (%) (Auto) 27.6 % (20.0-45.0) Monocytes (%) (Auto) 12.0 % (1.0-10.0) H Eosinophils (%) (Auto) 2.1 % (0.0-3.0) Basophils (%) (Auto) 0.6 % (0.0-2.0) Sodium Level 137 MMOL/L (136-145) Potassium Level 4.7 MMOL/L (3.5-5.1) Chloride Level 101 MMOL/L (98-107) Carbon Dioxide Level 29 MMOL/L (21-32) Anion Gap 7 mmol/L (5-15) Blood Urea Nitrogen 26 mg/dL (7-18) H Creatinine 2.6 MG/DL (0.55-1.30) H Estimat Glomerular Filtration Rate mL/min (>60) Glucose Level 89 MG/DL (74-106) # Calcium Level 7.9 MG/DL (8.5-10.1) L Total Bilirubin 0.2 MG/DL (0.2-1.0) Aspartate Amino Transf (AST/SGOT) 18 U/L (15-37) Alanine Aminotransferase (ALT/SGPT) 15 U/L (12-78) Alkaline Phosphatase 130 U/L (46-116) H Total Protein 6.9 G/DL (6.4-8.2) Albumin 3.0 G/DL (3.4-5.0) L Globulin 3.9 g/dL Albumin/Globulin Ratio 0.8 (1.0-2.7) L Microbiology Date/Time Source Procedure Growth Status 04/02/19 18:15 Nasal Nares Left MRSA Culture - Final NO METHICILLIN RESISTANT STAPH AUREUS... Complete 04/02/19 09:55 Rectum VRE Culture - Final NO VANCOMYCIN RESISTANT ENTEROCOCCUS ... Complete 04/02/19 09:55 Rectum - Final NO CARBAPENEM-RESISTANT ENTEROBACTERI... Complete Sophia Servin MD April 04, 2019 17:54
--- NOTE | 2019-04-04 19:45 | NUR ---
HAND-OFF: Report given to MIKAEL Carbone. No acute s/s of distress noted.
--- NOTE | 2019-04-04 19:50 | NUR ---
NURSE NOTES: Received report from MIKAEL Nicolas. Patient in bed asleep showing no signs of acute distress. Respiration even and non labored on room air. VS stable. Bed in lowest position and wheels locked. Bed alarm on. Call light within reach. All needs attended and met. Will continue to monitor.
[2019-04-04 20:00] VITALS: BP 139/63
[2019-04-04] MEDS: Iron Sucrose 100 MG in NS 55 ML IV SCH (21:00)
[2019-04-04] MEDS: Zolpidem 5mg tab ORAL PRN (21:33)
--- NOTE | 2019-04-04 23:30 | NUR ---
NURSE NOTES: Received Pt is sleeping on the bed and alert and oriented x3. On Tele monitor with SR. IV site intact and no sign of infiltration noted. Dressing is dry and intact on Rt. upper chest dialysis cath area. Pt scheduled hemodialysis tomorrow and called to dialysis center by day shift nurse. Placed fall precaution. Will continue to care plan.
--- NOTE | 2019-04-04 23:31 | Consultation ---
DATE OF CONSULTATION: 04/04/2019 CARDIOLOGY CONSULTATION: CONSULTING PHYSICIAN: Sophia Servin M.D. PATIENT ID: This is an 88-year-old female. REASON FOR EVALUATION: To find out why the patient is taking blood thinners. HISTORY OF PRESENT ILLNESS: The patient is a very pleasant lady who came because she had rectal bleed and she underwent endoscopy and that was because she has recurrent symptomatic GI bleed and she was taking Eliquis and a consult for Cardiology was placed to see why she has taken Eliquis. I talked to the patient and she does not know why she was on Eliquis. She said that it should be referred to her primary care doctor who is Dr. Fung, but then she added that probably he is not practicing anymore. She said he probably gave her these medications. She is also taking amiodarone, which I guess was for atrial fibrillation and that may be why she is taking Eliquis. The patient recently went on dialysis. She denies any cardiac symptoms. No palpitations. No dyspnea. No chest pain. No syncope. PAST MEDICAL HISTORY: Significant for hypothyroidism, hypertension, and she is also borderline diabetic and now she is on dialysis for end-stage renal disease and she is not sure why she had end-stage renal disease. PAST SURGICAL HISTORY: Remarkable only for tonsillectomy and appendectomy and polyp removed from her colon. ALLERGIES: She is allergic to antibiotics. I reviewed that and it is all listed here, amoxicillin, erythromycin, gentamicin, penicillin, and sulfa. Also some food allergies and amlodipine. HABITS: She used to smoke, she quit in 1989. She smoked for about 40 years. There is no alcohol or drug abuse. REVIEW OF SYSTEMS: Significant for weakness. She has a Mahurkar catheter in the right subclavian vein. She walks with a walker, but she does not walk too much. PHYSICAL EXAMINATION: GENERAL: This is a very pleasant elderly female, does not seem to be in acute distress. VITAL SIGNS: Blood pressure 138/52, heart rate is 60, regular. Temperature is normal. Oxygen saturation is also normal. HEENT: PERRLA, EOMI. NECK: Supple. Jugular pressure is not elevated. She has bilateral palpable normal carotid upstroke. Her neck veins are not distended. Her neck is supple. No any lumps or nodules. LUNGS: Clear to auscultation bilaterally. HEART: Regular otherwise unremarkable. BREASTS: No significant lumps. ABDOMEN: Soft. No significant masses palpable. No bruits. Good bowel sounds present. EXTREMITIES: Lower extremity, trace edema. Distal pulses are diminished, but palpable. NEUROLOGICAL: She appears to be intact. LABORATORY AND DIAGNOSTIC DATA: EKG shows sinus rhythm with right bundle-branch block. No significant ST or T changes. Chest x-ray is unremarkable. Her hemoglobin is 10.4 upon admission and today is 10.1. WBC is normal and platelets are normal. Her glucose this morning was 89. Urinalysis is noted. IMPRESSION AND RECOMMENDATION: This patient was on blood thinners. I am just guessing she probably was put on it because of paroxysmal atrial fibrillation. The suspicion is because she is also on amiodarone; however, there is in no way for me to find out exactly why she was put on Eliquis. She was put on by the retired physician who is not practicing anymore and I do not know if I can get his records. Definitely, the patient does not have prosthetic mechanical cardiac valve, which would be absolute indication to continue anticoagulation and in that case she would be on warfarin and not on Eliquis. Otherwise, I did not see any other reason why she will be anticoagulated. She does not have any evidence of pulmonary emboli. This is no recent deep vein thrombosis or any other common indication for anticoagulation, so I assume this is for atrial fibrillation because it is for prevention. It should be discontinued and then subsequently she should be started on aspirin when she is stable from any GI bleed and if she bleeds on aspirin too, then we should consider left atrial occlusion device versus just keep her off anticoagulation. Anyhow, at this point, I do not see any life-threatening indications for her to be on anticoagulation and I do not see that discontinuing Eliquis would be life threatening for her, and so I agree with not giving her any anticoagulation or blood thinners in the setting of GI bleed. Thank you very much for your consultation. Sophia Servin M.D. : SUSHMA JOB#: [id number] CC: VIVIANA
--- NOTE | 2019-04-04 23:46 | NUR ---
HAND-OFF: Report given to MIKAEL Silverman. Patient stable.
[2019-04-05] VITALS: BP 100/50
[2019-04-05 04:00] VITALS: BP 128/61
[2019-04-05 06:11] LABS: BASOPHILS % (AUTO) 0.5 % (0.0-2.0); EOSINOPHILS % (AUTO) 2.5 % (0.0-3.0); HEMATOCRIT 30.6 % (37.0-47.0); HEMOGLOBIN 9.9 G/DL (12.0-16.0); LYMPHOCYTES % (AUTO) 25.1 % (20.0-45.0); MEAN CORPUSCULAR VOLUME 92 FL (80-99); MONOCYTES % (AUTO) 12.2 % (1.0-10.0); NEUTROPHILS % (AUTO) 59.8 % (45.0-75.0); PLATELET COUNT 165 K/UL (150-450); RED BLOOD COUNT 3.32 M/UL (4.20-5.40); RED CELL DISTRIBUTION WIDTH 16.7 % (11.6-14.8); WHITE BLOOD COUNT 4.8 K/UL (4.8-10.8)
[2019-04-05 06:20] LABS: ANION GAP 7 mmol/L (5-15); BLOOD UREA NITROGEN 32 mg/dL (7-18); CALCIUM 7.8 MG/DL (8.5-10.1); CARBON DIOXIDE 28 MMOL/L (21-32); CHLORIDE 101 MMOL/L (98-107); CREATININE 3.4 MG/DL (0.55-1.30); POTASSIUM 4.4 MMOL/L (3.5-5.1); SODIUM 136 MMOL/L (136-145)
--- NOTE | 2019-04-05 07:50 | NUR ---
HAND-OFF: Report given to MIKAEL Stark. Pt is resting on the bed and no sgin of acute distress noted. Family; daughter request for Dr. Avlarez's progress note. Endorsed incoming nurse.
--- NOTE | 2019-04-05 07:51 | NUR ---
NURSE NOTES: Received report from MIKAEL Silverman. The patient is resting on chair without acute distress or shortness of breath. The patient's bed is in the lowest position, call light in reach, and fall and aspiration precaution reinforced. Will continue plan of care.
[2019-04-05 08:00] VITALS: BP 151/83
[2019-04-05] MEDS ORDERED: Heparin Sod 1000 units/ml 10ml IV PRN (08:00)
[2019-04-05] MEDS ORDERED: Heparin 1000 units/ml 1ml Vial INJ SCH (08:00)
[2019-04-05] MEDS: Tamsulosin 0.4mg cap ORAL SCH (08:45)
[2019-04-05] MEDS: Amiodarone 200mg tab ORAL SCH (08:45)
[2019-04-05] MEDS: Hydrocortisone 25mg supp RECTAL SCH ×2 (08:45→18:13)
[2019-04-05] MEDS: Docusate 100mg cap ORAL SCH (08:45)
[2019-04-05] MEDS: Losartan 50mg tab ORAL SCH (09:00)
--- NOTE | 2019-04-05 10:48 | Nephrology Progress Note ---
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 Cardiology noted. We'll not resume Eliquis. Instead Baby Aspirin. We'll refer for appendage closure Trimming Polypharmacy. DW pt's family. She was on hazardous meds like KCL !! Hd today. Subjective Subjective c/o Insomnia Objective Objective Last 24 Hour Vital Signs Date Time Temp Pulse Resp B/P (MAP) Pulse Ox O2 Delivery O2 Flow Rate FiO2 04/05/19 09:00 Room Air 04/05/19 08:00 98.2 59 18 151/83 (105) 04/05/19 04:00 55 04/05/19 04:00 98.9 56 18 128/61 (83) 98 04/05/19 00:00 62 04/05/19 00:00 99.1 62 18 100/50 (67) 98 04/04/19 21:00 Room Air 04/04/19 20:00 99.0 61 18 139/63 (88) 96 04/04/19 20:00 73 04/04/19 16:00 98.6 62 20 134/51 (78) 94 04/04/19 16:00 58 04/04/19 14:00 138/52 04/04/19 12:00 75 04/04/19 12:00 98.0 60 17 138/52 (80) 97 Intake and Output 04/04/19 04/05/19 19:00 07:00 Intake Total 1000 ml 260 ml Balance 1000 ml 260 ml Intake Oral 1000 ml 200 ml IV Total 60 ml # Voids 8 2 # Bowel Movements 2 Laboratory Tests 04/05/19 06:00: White Blood Count 4.8, Red Blood Count 3.32L, Hemoglobin 9.9L, Hematocrit 30.6L , Mean Corpuscular Volume 92, Mean Corpuscular Hemoglobin 29.9, Mean Corpuscular Hemoglobin Concent 32.4, Red Cell Distribution Width 16.7H, Platelet Count 165, Mean Platelet Volume 7.8, Neutrophils (%) (Auto) 59.8, Lymphocytes (%) (Auto) 25.1, Monocytes (%) (Auto) 12.2H, Eosinophils (%) (Auto) 2.5, Basophils (%) (Auto) 0.5, Sodium Level 136, Potassium Level 4.4, Chloride Level 101, Carbon Dioxide Level 28, Anion Gap 7, Blood Urea Nitrogen 32H, Creatinine 3.4H, Estimat Glomerular Filtration Rate , Glucose Level 92, Calcium Level 7.8L Height (Feet): 5 Height (Inches): 1.00 Weight (Pounds): 131 Objective CV RR 65 SR Lungs CTA Abd SNT. BS + E No CCE Clark Alvarez MD April 05, 2019 10:48
[2019-04-05 12:00] VITALS: BP 182/102
[2019-04-05] MEDS ORDERED: NS 275ml ONE (13:56)
[2019-04-05] MEDS ORDERED: Tubing IV Secondary IV ONE (13:56)
--- NOTE | 2019-04-05 15:30 | NUR ---
NURSE NOTES: Per Dialysis nurse, 2L output from dialysis. Will closely monitor the patient's vital sign.
[2019-04-05 16:00] VITALS: BP 156/96
[2019-04-05 16:50] LABS: BASOPHILS % (AUTO) 0.5 % (0.0-2.0); EOSINOPHILS % (AUTO) 1.5 % (0.0-3.0); HEMATOCRIT 31.7 % (37.0-47.0); HEMOGLOBIN 10.7 G/DL (12.0-16.0); LYMPHOCYTES % (AUTO) 18.7 % (20.0-45.0); MEAN CORPUSCULAR VOLUME 90 FL (80-99); MONOCYTES % (AUTO) 10.4 % (1.0-10.0); NEUTROPHILS % (AUTO) 68.8 % (45.0-75.0); PLATELET COUNT 163 K/UL (150-450); RED BLOOD COUNT 3.53 M/UL (4.20-5.40); RED CELL DISTRIBUTION WIDTH 15.9 % (11.6-14.8); WHITE BLOOD COUNT 5.9 K/UL (4.8-10.8)
[2019-04-05 17:02] LABS: ANION GAP 8 mmol/L (5-15); BLOOD UREA NITROGEN 19 mg/dL (7-18); CALCIUM 8.4 MG/DL (8.5-10.1); CARBON DIOXIDE 29 MMOL/L (21-32); CHLORIDE 100 MMOL/L (98-107); CREATININE 2.2 MG/DL (0.55-1.30); PHOSPHORUS 2.6 MG/DL (2.5-4.9); POTASSIUM 3.9 MMOL/L (3.5-5.1); SODIUM 137 MMOL/L (136-145)
--- NOTE | 2019-04-05 17:18 | General Progress Note ---
Assessment/Plan Status: stable Assessment/Plan: Assessment (1) Anemia ICD Codes: D64.9 - Anemia, unspecified SNOMED: 330092360 (2) LGI bleed ICD Codes: K92.2 - Gastrointestinal hemorrhage, unspecified; Z99.2 - Dependence on renal dialysis SNOMED: 05053857 Status: stable Assessment/Plan SUMMARY OF FINDINGS: 1. Gastritis, status post biopsy. 2. Limited colonoscopy examination given the prep. 3. One rectal polyp removed. See above for details. 4. Internal hemorrhoids. RECOMMENDATIONS: 1. Resume diet. 2. Follow laboratories. 3. The patient is mostly probably bleeding from the internal hemorrhoids. We will treat for hemorrhoids, anusol HC prn prn transfusion ppi follow symptoms Subjective Allergies: Coded Allergies: AMLODIPINE (Verified Allergy, Unknown, 04/02/19) AMOXICILLIN (Verified Allergy, Unknown, 04/02/19) ERYTHROMYCIN BASE (Verified Allergy, Unknown, 04/02/19) GENTAMICIN (Verified Allergy, Unknown, 04/02/19) LATEX (Verified Allergy, Unknown, 04/02/19) PENICILLINS (Verified Allergy, Unknown, 04/02/19) PINEAPPLE (Verified Allergy, Unknown, 04/02/19) SULFA (SULFONAMIDE ANTIBIOTICS) (Verified Allergy, Unknown, 04/02/19) Subjective no abdominal pain c/o some degree of "fullness" Objective Last 24 Hour Vital Signs Date Time Temp Pulse Resp B/P (MAP) Pulse Ox O2 Delivery O2 Flow Rate FiO2 04/05/19 16:00 98.1 61 18 156/96 (116) 97 04/05/19 15:18 64 04/05/19 12:00 96.0 61 18 182/102 (128) 98 04/05/19 11:56 60 04/05/19 09:00 59 151/83 04/05/19 09:00 151/83 04/05/19 09:00 Room Air 04/05/19 08:00 98.2 59 18 151/83 (105) 98 04/05/19 07:48 59 04/05/19 04:00 55 04/05/19 04:00 98.9 56 18 128/61 (83) 98 04/05/19 00:00 62 04/05/19 00:00 99.1 62 18 100/50 (67) 98 04/04/19 21:00 Room Air 04/04/19 20:00 99.0 61 18 139/63 (88) 96 04/04/19 20:00 73 Intake and Output 04/04/19 04/05/19 18:59 06:59 Intake Total 1000 ml 260 ml Balance 1000 ml 260 ml Intake Oral 1000 ml 200 ml IV Total 60 ml # Voids 8 2 # Bowel Movements 2 Laboratory Tests 04/05/19 06:00: White Blood Count 4.8, Red Blood Count 3.32L, Hemoglobin 9.9L, Hematocrit 30.6L , Mean Corpuscular Volume 92, Mean Corpuscular Hemoglobin 29.9, Mean Corpuscular Hemoglobin Concent 32.4, Red Cell Distribution Width 16.7H, Platelet Count 165, Mean Platelet Volume 7.8, Neutrophils (%) (Auto) 59.8, Lymphocytes (%) (Auto) 25.1, Monocytes (%) (Auto) 12.2H, Eosinophils (%) (Auto) 2.5, Basophils (%) (Auto) 0.5, Sodium Level 136, Potassium Level 4.4, Chloride Level 101, Carbon Dioxide Level 28, Anion Gap 7, Blood Urea Nitrogen 32H, Creatinine 3.4H, Estimat Glomerular Filtration Rate , Glucose Level 92, Calcium Level 7.8L 04/05/19 16:25: White Blood Count 5.9, Red Blood Count 3.53L, Hemoglobin 10.7L, Hematocrit 31.7L , Mean Corpuscular Volume 90, Mean Corpuscular Hemoglobin 30.3, Mean Corpuscular Hemoglobin Concent 33.7, Red Cell Distribution Width 15.9H, Platelet Count 163, Mean Platelet Volume 6.8, Neutrophils (%) (Auto) 68.8, Lymphocytes (%) (Auto) 18.7L, Monocytes (%) (Auto) 10.4H, Eosinophils (%) (Auto ) 1.5, Basophils (%) (Auto) 0.5, Sodium Level 137, Potassium Level 3.9, Chloride Level 100, Carbon Dioxide Level 29, Anion Gap 8, Blood Urea Nitrogen 19H, Creatinine 2.2H, Estimat Glomerular Filtration Rate , Glucose Level 135H, Calcium Level 8.4L, Phosphorus Level 2.6 Height (Feet): 5 Height (Inches): 1.00 Weight (Pounds): 131 Objective WDWN NCAT supple (+) R chest wall catheter CTA RRR abd soft, slightly distended no edema nonfocal Ashlie Dennis MD April 05, 2019 17:18
[2019-04-05] MEDS: Aspirin EC 81mg tab ORAL SCH (18:13)
[2019-04-05] MEDS ORDERED: LACTULOSE20 GM/301 ORAL (19:00)
[2019-04-05] MEDS ORDERED: NORCO 5-325 TA1 EACH ORAL (19:01)
[2019-04-05] MEDS ORDERED: TUSSIN MUC100 MG/5 M PO (19:04)
[2019-04-05] MEDS ORDERED: ZOLPIDEM TARTRAT5 MG ORAL (19:05)
[2019-04-05] MEDS ORDERED: POTASSIUM CHLO10 ME3 ORAL (19:09)
[2019-04-05] MEDS ORDERED: ELIQUIS2.5 MG PO (19:11)
[2019-04-05] MEDS ORDERED: LORATADINE10 M2 PO (19:14)
[2019-04-05] MEDS ORDERED: SODIUM CHLORIDE PO (19:15)
[2019-04-05] MEDS ORDERED: SYNTHROID100 MCG ORAL (19:18)
--- NOTE | 2019-04-05 19:29 | NUR ---
HAND-OFF: Report given to MIKAEL Carbone. The patient is stable without acute distress or shortness of breath. Endoresed plan of care.
--- NOTE | 2019-04-05 19:30 | NUR ---
NURSE NOTES: Received report from MIKAEL Reyes. Patient in bed awake showing no signs of acute distress. Respiration even and non labored on room air. VS stable. No bleeding noted. Bed in lowest position and wheels locked. Bed alarm on. Call light within reach. All needs attended and met. Will continue to monitor.
[2019-04-05 20:00] VITALS: BP 129/78
[2019-04-05] MEDS: Iron Sucrose 100 MG in NS 55 ML IV SCH (20:59)
[2019-04-05] MEDS: Zolpidem 5mg tab ORAL PRN (21:50)
--- NOTE | 2019-04-05 22:42 | Cardiology Progress Note ---
Assessment/Plan Assessment/Plan stable from cardiac stadnpoint, continue aspirin Subjective Subjective The patient reports feeling well, denies chest pain or dyspnea, wants to go home Objective Last 24 Hour Vital Signs Date Time Temp Pulse Resp B/P (MAP) Pulse Ox O2 Delivery O2 Flow Rate FiO2 04/05/19 21:00 Room Air 04/05/19 20:00 59 04/05/19 20:00 99.6 62 20 129/78 (95) 94 04/05/19 16:00 98.1 61 18 156/96 (116) 97 04/05/19 15:18 64 04/05/19 12:00 96.0 61 18 182/102 (128) 98 04/05/19 11:56 60 04/05/19 09:00 59 151/83 04/05/19 09:00 151/83 04/05/19 09:00 Room Air 04/05/19 08:00 98.2 59 18 151/83 (105) 98 04/05/19 07:48 59 04/05/19 04:00 55 04/05/19 04:00 98.9 56 18 128/61 (83) 98 04/05/19 00:00 62 04/05/19 00:00 99.1 62 18 100/50 (67) 98 General Appearance: no apparent distress EENT: PERRL/EOMI Neck: no JVD Rhythm: NSR Cardiovascular: normal rate Respiratory/Chest: lungs clear, other - right subclavian mahurkar Abdomen: soft Extremities: non-tender Neurologic: legal stenographer II-XII grossly normal Intake and Output 04/04/19 04/05/19 18:59 06:59 Intake Total 1000 ml 260 ml Balance 1000 ml 260 ml Intake Oral 1000 ml 200 ml IV Total 60 ml # Voids 8 2 # Bowel Movements 2 Laboratory Tests Test 04/05/19 06:00 04/05/19 16:25 White Blood Count 4.8 K/UL (4.8-10.8) 5.9 K/UL (4.8-10.8) Red Blood Count 3.32 M/UL (4.20-5.40) L 3.53 M/UL (4.20-5.40) L Hemoglobin 9.9 G/DL (12.0-16.0) L 10.7 G/DL (12.0-16.0) L Hematocrit 30.6 % (37.0-47.0) L 31.7 % (37.0-47.0) L Mean Corpuscular Volume 92 FL (80-99) 90 FL (80-99) Mean Corpuscular Hemoglobin 29.9 PG (27.0-31.0) 30.3 PG (27.0-31.0) Mean Corpuscular Hemoglobin Concent 32.4 G/DL (32.0-36.0) 33.7 G/DL (32.0-36.0) Red Cell Distribution Width 16.7 % (11.6-14.8) H 15.9 % (11.6-14.8) H Platelet Count 165 K/UL (150-450) 163 K/UL (150-450) Mean Platelet Volume 7.8 FL (6.5-10.1) 6.8 FL (6.5-10.1) Neutrophils (%) (Auto) 59.8 % (45.0-75.0) 68.8 % (45.0-75.0) Lymphocytes (%) (Auto) 25.1 % (20.0-45.0) 18.7 % (20.0-45.0) L Monocytes (%) (Auto) 12.2 % (1.0-10.0) H 10.4 % (1.0-10.0) H Eosinophils (%) (Auto) 2.5 % (0.0-3.0) 1.5 % (0.0-3.0) Basophils (%) (Auto) 0.5 % (0.0-2.0) 0.5 % (0.0-2.0) Sodium Level 136 MMOL/L (136-145) 137 MMOL/L (136-145) Potassium Level 4.4 MMOL/L (3.5-5.1) 3.9 MMOL/L (3.5-5.1) Chloride Level 101 MMOL/L (98-107) 100 MMOL/L (98-107) Carbon Dioxide Level 28 MMOL/L (21-32) 29 MMOL/L (21-32) Anion Gap 7 mmol/L (5-15) 8 mmol/L (5-15) Blood Urea Nitrogen 32 mg/dL (7-18) H 19 mg/dL (7-18) H Creatinine 3.4 MG/DL (0.55-1.30) H 2.2 MG/DL (0.55-1.30) H Estimat Glomerular Filtration Rate mL/min (>60) mL/min (>60) Glucose Level 92 MG/DL (74-106) 135 MG/DL (74-106) H Calcium Level 7.8 MG/DL (8.5-10.1) L 8.4 MG/DL (8.5-10.1) L Phosphorus Level 2.6 MG/DL (2.5-4.9) Sophia Servin MD April 05, 2019 22:42
[2019-04-06 04:00] VITALS: BP 136/52
--- NOTE | 2019-04-06 07:10 | NUR ---
HAND-OFF: Report given to MIKAEL Reyes.
--- NOTE | 2019-04-06 07:15 | NUR ---
NURSE NOTES: Received report from MIKAEL Carbone. The patient is resting on the bed without acute distress of shortness of breath. No s/s of bleeding noted. The patient's bed in the lowest position, call light in reach, and fall and aspiration precaution reinforced. Will continue plan of care.
[2019-04-06 08:00] VITALS: BP 193/96
[2019-04-06] MEDS: Amiodarone 200mg tab ORAL SCH (08:37)
[2019-04-06] MEDS: Docusate 100mg cap ORAL SCH (08:37)
[2019-04-06] MEDS: Losartan 50mg tab ORAL SCH (08:38)
[2019-04-06] MEDS: Hydrocortisone 25mg supp RECTAL SCH (08:39)
[2019-04-06] MEDS: Tamsulosin 0.4mg cap ORAL SCH (08:39)
[2019-04-06] MEDS: Aspirin EC 81mg tab ORAL SCH (08:39)
[2019-04-06] MEDS ORDERED: Aspirin EC 81mg tab ORAL SCH (09:00)
--- NOTE | 2019-04-06 09:33 | General Progress Note ---
Assessment/Plan Status: stable Assessment/Plan: Assessment (1) Anemia ICD Codes: D64.9 - Anemia, unspecified SNOMED: 966057212 (2) LGI bleed ICD Codes: K92.2 - Gastrointestinal hemorrhage, unspecified; Z99.2 - Dependence on renal dialysis SNOMED: [id number] Status: stable Assessment/Plan SUMMARY OF FINDINGS: 1. Gastritis, status post biopsy. 2. Limited colonoscopy examination given the prep. 3. One rectal polyp removed. See above for details. 4. Internal hemorrhoids. RECOMMENDATIONS: 1. Push po 2. Follow laboratories. 3. The patient is mostly probably bleeding from the internal hemorrhoids. We will treat for hemorrhoids, anusol HC prn prn transfusion ppi 4. follow symptoms Subjective Allergies: Coded Allergies: AMLODIPINE (Verified Allergy, Unknown, 04/02/19) AMOXICILLIN (Verified Allergy, Unknown, 04/02/19) ERYTHROMYCIN BASE (Verified Allergy, Unknown, 04/02/19) GENTAMICIN (Verified Allergy, Unknown, 04/02/19) LATEX (Verified Allergy, Unknown, 04/02/19) PENICILLINS (Verified Allergy, Unknown, 04/02/19) PINEAPPLE (Verified Allergy, Unknown, 04/02/19) SULFA (SULFONAMIDE ANTIBIOTICS) (Verified Allergy, Unknown, 04/02/19) Subjective no abdominal pain no BM declines laxative - wants to wait Objective Last 24 Hour Vital Signs Date Time Temp Pulse Resp B/P (MAP) Pulse Ox O2 Delivery O2 Flow Rate FiO2 04/06/19 08:39 61 193/96 04/06/19 08:38 193/96 04/06/19 08:00 98.2 61 18 193/96 (128) 95 04/06/19 04:00 98.8 52 17 136/52 (80) 93 04/06/19 04:00 49 04/06/19 00:00 59 04/05/19 21:00 Room Air 04/05/19 20:00 59 04/05/19 20:00 99.6 62 20 129/78 (95) 94 04/05/19 16:00 98.1 61 18 156/96 (116) 97 04/05/19 15:18 64 04/05/19 12:00 96.0 61 18 182/102 (128) 98 04/05/19 11:56 60 Intake and Output 04/05/19 04/06/19 19:00 07:00 Output Total 2000 ml Balance -2000 ml Output Hemodialysis UF 2000 ml # Voids 3 3 Laboratory Tests 04/05/19 16:25: White Blood Count 5.9, Red Blood Count 3.53L, Hemoglobin 10.7L, Hematocrit 31.7L , Mean Corpuscular Volume 90, Mean Corpuscular Hemoglobin 30.3, Mean Corpuscular Hemoglobin Concent 33.7, Red Cell Distribution Width 15.9H, Platelet Count 163, Mean Platelet Volume 6.8, Neutrophils (%) (Auto) 68.8, Lymphocytes (%) (Auto) 18.7L, Monocytes (%) (Auto) 10.4H, Eosinophils (%) (Auto ) 1.5, Basophils (%) (Auto) 0.5, Sodium Level 137, Potassium Level 3.9, Chloride Level 100, Carbon Dioxide Level 29, Anion Gap 8, Blood Urea Nitrogen 19H, Creatinine 2.2H, Estimat Glomerular Filtration Rate , Glucose Level 135H, Calcium Level 8.4L, Phosphorus Level 2.6 Height (Feet): 5 Height (Inches): 1.00 Weight (Pounds): 131 Objective WDWN NCAT supple (+) R chest wall catheter CTA RRR abd soft, slightly distended no edema nonfocal Ashlie Dennis MD April 06, 2019 09:33
--- NOTE | 2019-04-06 10:00 | NUR ---
NURSE NOTES: Blood pressure of 193/[address] Alvarez. Administered morning blood pressure medication as prescribed. Blood pressure retaken after an hour later and dropped to 153/79. The patient denies of acute distress or shortness of breath. Will closely monitor the patient's vital signs.
[2019-04-06 10:29] VITALS: BP 153/79
--- NOTE | 2019-04-06 10:29 | Nephrology Progress Note ---
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 Cardiology noted. We'll not resume Eliquis. Instead Baby Aspirin. We'll refer for appendage closure Trimming Polypharmacy. DW pt's daughter@ bedside. She was on hazardous meds like KCL !! DC home now. Subjective Subjective No new c/o Objective Objective Last 24 Hour Vital Signs Date Time Temp Pulse Resp B/P (MAP) Pulse Ox O2 Delivery O2 Flow Rate FiO2 04/06/19 09:00 Room Air 04/06/19 08:39 61 193/96 04/06/19 08:38 193/96 04/06/19 08:00 98.2 61 18 193/96 (128) 95 04/06/19 04:00 98.8 52 17 136/52 (80) 93 04/06/19 04:00 49 04/06/19 00:00 59 04/05/19 21:00 Room Air 04/05/19 20:00 59 04/05/19 20:00 99.6 62 20 129/78 (95) 94 04/05/19 16:00 98.1 61 18 156/96 (116) 97 04/05/19 15:18 64 04/05/19 12:00 96.0 61 18 182/102 (128) 98 04/05/19 11:56 60 Intake and Output 04/05/19 04/06/19 19:00 07:00 Output Total 2000 ml Balance -2000 ml Output Hemodialysis UF 2000 ml # Voids 3 3 Laboratory Tests 04/05/19 16:25: White Blood Count 5.9, Red Blood Count 3.53L, Hemoglobin 10.7L, Hematocrit 31.7L , Mean Corpuscular Volume 90, Mean Corpuscular Hemoglobin 30.3, Mean Corpuscular Hemoglobin Concent 33.7, Red Cell Distribution Width 15.9H, Platelet Count 163, Mean Platelet Volume 6.8, Neutrophils (%) (Auto) 68.8, Lymphocytes (%) (Auto) 18.7L, Monocytes (%) (Auto) 10.4H, Eosinophils (%) (Auto ) 1.5, Basophils (%) (Auto) 0.5, Sodium Level 137, Potassium Level 3.9, Chloride Level 100, Carbon Dioxide Level 29, Anion Gap 8, Blood Urea Nitrogen 19H, Creatinine 2.2H, Estimat Glomerular Filtration Rate , Glucose Level 135H, Calcium Level 8.4L, Phosphorus Level 2.6 Height (Feet): 5 Height (Inches): 1.00 Weight (Pounds): 131 Objective CV RR 65 SR Lungs CTA Abd SNT. BS + E No CCE Clark Alvarez MD April 06, 2019 10:29
--- NOTE | 2019-04-06 11:40 | NUR ---
NURSE NOTES: The patient was discharged in a safe manner. The patient's daughter, Aminah Ramey, came to pick and shovel worker the patient. The patient denies of acute distress, shortness of breath, or signs and symptoms of bleeding upon discharge. Discharge instruction and teaching about the medication and signs and symptoms of recurring symptoms were provided to the patient and the patient's daughter. The patient's tele monitoring box, IV access, and name band were removed. Took a picture for bilateral heel upon discharge. Per Dr. Hernandez, the patient will be discharged to home. Per patient, she will go to [facility].
--- NOTE | 2019-04-06 22:05 | Cardiology Progress Note ---
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 Objective Last 24 Hour Vital Signs Date Time Temp Pulse Resp B/P (MAP) Pulse Ox O2 Delivery O2 Flow Rate FiO2 04/06/19 10:29 18 153/79 (103) 04/06/19 09:00 Room Air 04/06/19 08:39 61 193/96 04/06/19 08:38 193/96 04/06/19 08:00 69 04/06/19 08:00 98.2 61 18 193/96 (128) 95 04/06/19 04:00 98.8 52 17 136/52 (80) 93 04/06/19 04:00 49 04/06/19 00:00 59 General Appearance: no apparent distress EENT: PERRL/EOMI Neck: no JVD Rhythm: NSR Cardiovascular: regular rhythm Respiratory/Chest: no respiratory distress Abdomen: non tender Extremities: other Intake and Output 04/05/19 04/06/19 18:59 06:59 Output Total 2000 ml Balance -2000 ml Output Hemodialysis UF 2000 ml # Voids 3 3 Sophia Servin MD April 06, 2019 22:05
[2019-04-07] MEDS ORDERED: Epoetin Alfa-EPBX (NON ESRD)10,000 unit/ml vial SUBQ SCH (21:00)
--- NOTE | 2019-04-08 09:55 | Discharge Summary ---
Discharge Summary Discharge Summary _ DATE OF ADMISSION: 04/02/2019 DATE OF DISCHARGE: 04/06/2019 DISCHARGED BY: Dr. Alvarez REASON FOR ADMISSION: 88 years old female with past medical history of end-stage renal disease, on hemodialysis, hypertensive cardiovascular disease, hypothyroidism, cardiomyopathy, presented with rectal bleeding for 1 week. Patient was sent for further evaluation to ED. Patient with known history of external hemorrhoids. Patient was also taking Eliquis for unclear reason. She denied abdominal pain, nausea , vomiting and diarrhea. She denied fever and chills. Upon evaluation vital signs were stable. Laboratory work-up revealed no leukocytosis, hemoglobin 10.4, hematocrit 32.6, platelet count 151. Stable coagulation profile. Potassium 5.2. BUN 49, creatinine 3.6, consistent with known history of end-stage renal disease. Stable LFT and lipase. Urinalysis revealed +2 protein, +2 leukocyte esterase, no pyuria, no bacteria. Patient was admitted to telemetry floor for further management . 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 Perez GI specialist Dr. Mckinney [facility] COURSE: Patient admitted to telemetry floor. Patient seen and evaluated by GI specialist. Patient subsequently undergone upper endoscopy with biopsy and colonoscopy with biopsy, which revealed gastritis , one rectal polyp removed, and internal hemorrhoids. Colonoscopy was limited given poor preparation. Biopsy of antrum revealed mild chronic gastritis, no H. pylori was identified. Biopsy of rectal polyp revealed hyperplastic polyp. GI specialist recommended to resume diet and follow-up with blood counts. Per GI specialist , patient was most likely bleeding from internal hemorrhoids. Patient was started on Anusol suppository. Symptomatic treatment provided. Hemoglobin and hematocrit were closely monitored with goal to keep hemoglobin above 7. Prior to discharge hemoglobin 10.7, hematocrit 31.7. Venofer was given while in the hospital. Bonding Supervisor followed. Patient was on Eliquis likely due to paroxysmal atrial fibrillation, since patient also was on amiodarone. Recent venous duplex bilateral lower extremity revealed no evidence of DVT. Patient was on telemetry floor telemetry floor , and telemetry did not demonstrate any evidence of atrial fibrillation. Due to the rectal bleeding , anticoagulation was discontinued. Patient started on antiplatelet therapy with aspirin. Home medications were resumed. Blood pressure was managed with multiple regimen of antihypertensive and remained stable. Levothyroxine continued. Pain management was addressed as needed. Bowel regimen instituted. Supportive care provided. Patient was closely monitored for any further signs of bleeding on aspirin. Patient tolerated aspirin no further rectal bleeding. Per cardiology recommendation , consider left atrial occlusion device versus just keep her off anticoagulation. Hemodialysis provided with close monitoring of volumes , electrolytes and renal parameters. She will be referred for left occlusive device. Patient clinically stabilized . Hemoglobin and hematocrit remained stable. No further evidence of rectal bleeding. Patient was stable for discharge home. FINAL DIAGNOSES: Rectal bleeding s/p EGD and colonoscopy Gastritis Internal hemorrhoids End-stage renal disease, on hemodialysis Anemia of chronic kidney disease Anemia of iron deficiency DISCHARGE MEDICATIONS: See Medication Reconciliation list. DISCHARGE INSTRUCTIONS: Patient was discharged home . Follow up with primary care provider in one week. Follow up with outpatient hemodialysis. I have been assigned to dictate discharge summary for this account. I was not involved in the patient's management. Aminah Argueta NP April 08, 2019 09:55
== END 2019-04-06 11:50 | disposition home or self-care (01) | DRG 393 ==
LOC: EMR 09:45 → 2E 09:57 → EDBEDREQ 10:12
PROC: 0DBP8ZZ Excision of Rectum, Via Natural or Artificial Opening Endoscopic (ICD-10-PCS; principal; 2019-04-03 11:44)
PROC: 0DB78ZX Excision of Stomach, Pylorus, Via Natural or Artificial Opening Endoscopic, Diagnostic (ICD-10-PCS; principal; 2019-04-03 11:44)
DX: K64.8 Other hemorrhoids (principal); N18.6 End stage renal disease; I13.11 Hypertensive heart and chronic kidney disease without heart failure, with stage 5 chronic kidney disease, or end stage renal disease; I42.9 Cardiomyopathy, unspecified; Z99.2 Dependence on renal dialysis; K62.1 Rectal polyp; Z88.0 Allergy status to penicillin; Z88.2 Allergy status to sulfonamides; Z88.8 Allergy status to other drugs, medicaments and biological substances; Z88.1 Allergy status to other antibiotic agents; Z91.040 Latex allergy status; E03.9 Hypothyroidism, unspecified; K29.70 Gastritis, unspecified, without bleeding; D63.1 Anemia in chronic kidney disease; D50.9 Iron deficiency anemia, unspecified; Z79.01 Long term (current) use of anticoagulants; R73.03 Prediabetes
CPT/HCPCS: 36415; 71045; 80048; 80053; 81003; 83690; 84100; 85025; 85610; 85730; 86850; 86900; 86901; 87081; 93005; 94003; 94150; 99285